=== PATIENT | female | born 1985 | race Caucasian/White ===

== ENCOUNTER 2019-09-20 15:12 | Day surgery (SDC) ==
[~2019-09-20] VITALS: Ht 171.4 cm; Wt 78.3 kg
[~2019-09-20 15:12] MED LIST: BUPIVACAINE/PF 0.5% ONE; DIAZ5TAB PO; EPINEPHRINE 1 MG/ML, 1ML ONE
[2019-09-20 15:49] VITALS: BP 158/107
[2019-09-20] MEDS ORDERED: LACTATED RINGERS 1,000 ML IV SCH (15:49)
[2019-09-20] MEDS ORDERED: HYDR-3240 PO (15:53)
[2019-09-20] MEDS ORDERED: NORE-205 PO (15:59)
[2019-09-20 16:11] LABS: HCG UR SG 1.032 (1.003-1.030)
[2019-09-20] MEDS ORDERED: FENTANYL PF 100 MCG/2ML ONE (16:25)
[2019-09-20] MEDS ORDERED: MIDAZOLAM 1 MG/ML, 2ML ONE (16:25)
[2019-09-20] MEDS ORDERED: KETOROLAC 30 MG/1 ML ONE (16:40)
[2019-09-20] MEDS ORDERED: PROPOFOL 10 MG/ML, 20ML ONE (16:40)
[2019-09-20] MEDS ORDERED: CEFAZOLIN 1,000 MG ONE (16:40)
[2019-09-20] MEDS ORDERED: DEXAMETHASONE 4 MG/ML, 1ML ONE (16:40)
[2019-09-20] MEDS ORDERED: ONDANSETRON 2MG/ML, 2ML ONE (16:40)
[2019-09-20] MEDS ORDERED: MEPERIDINE/PF 25MG/ML,1ML IVPush PRN (17:00)
[2019-09-20] MEDS ORDERED: ACETAMINOPHEN 325 MG TABLET PO PRN (17:00)
[2019-09-20] MEDS ORDERED: HYDROmorphone 2 MG/ML, 1ML IVPush PRN (17:00)
[2019-09-20] MEDS ORDERED: hydrALAzine 20 MG/ML, 1ML IV PRN (17:00)
[2019-09-20] MEDS ORDERED: OXYcodone 5 MG/5 ML ORAL.SOL UDC PO PRN (17:00)
[2019-09-20] MEDS ORDERED: FENTANYL PF 100 MCG/2ML IV PRN (17:00)
[2019-09-20] MEDS ORDERED: PROMETHAZINE 25 MG/ML, 1ML IV PRN (17:00)
[2019-09-20] MEDS ORDERED: METOPROLOL 1 MG/ML, 5ML IV PRN (17:00)
[2019-09-20] MEDS ORDERED: MIDAZOLAM 1 MG/ML, 2ML IV PRN (17:00)
[2019-09-20] MEDS ORDERED: ALBUTEROL/IPRATROPIUM 2.5MG/0.5MG, 3 ML NPPB PRN (17:00)
[2019-09-20] MEDS ORDERED: hydrALAzine 20 MG/ML, 1ML ONE (17:14)
[2019-09-20] MEDS ORDERED: LABETALOL 5MG/ML, 20ML IV PRN (17:30)
== END 2019-09-20 18:09 | disposition home or self-care (01) ==
LOC: OR 15:12
PROVIDERS: ATTEND Orthopaedic Surgery
DX: T84.84XA Pain due to internal orthopedic prosthetic devices, implants and grafts, initial encounter (principal); Y83.8 Other surgical procedures as the cause of abnormal reaction of the patient, or of later complication, without mention of misadventure at the time of the procedure
CPT/HCPCS: 20680; 73600; 81025; J0171; J0360; J0690; J1100; J1885; J2250; J2405; J2704; J3010; J7120; 76000